=== PATIENT | male | born 1950 | race Caucasian/White ===

== ENCOUNTER 2023-06-21 08:02 | Emergency (ER) | payer MEDICARE, OTHER ==
[~2023-06-21] VITALS: Ht 167.6 cm; Wt 129.9 kg
[2023-06-21] MEDS ORDERED: LIPITOR40 MG PO (08:52)
[2023-06-21] MEDS ORDERED: COREG25 MG PO (08:53)
[2023-06-21 08:55] LABS: BASOPHILS 0.8 % (0-2); EOSINOPHILS 2.3 % (0-6); HEMATOCRIT 39.7 % (35.0-50.0); HEMOGLOBIN 13.8 g/dL (12.0-18.0); LYMPHOCYTES 20.5 % (24-44); MCH 30.8 (27-36); MCHC 34.7 g/dl (30-36); MONOCYTES 9.5 % (0-12); NEUTROPHILS 66.9 % (39-80); PLATELET COUNT 186 K/uL (140-440); RBC 4.47 M/ul (4.3-5.7); RDW 13.9 (10.5-15.0)
[2023-06-21] MEDS ORDERED: COZAAR100 MG PO (08:55)
[2023-06-21] MEDS ORDERED: CLOPIDOGREL75 MG PO (08:55)
[2023-06-21] MEDS ORDERED: CARDURA1 MG PO (08:55)
[2023-06-21] MEDS ORDERED: NIFEDIPINE ER90 M1 PO (08:56)
[2023-06-21] MEDS ORDERED: NAPROXEN250 MG PO (08:56)
[2023-06-21 09:15] LABS: ALBUMIN 3.6 g/dL (3.4-5.0); ALBUMIN/GLOBULIN RATIO 1.03 (1.1-2.4); BILIRUBIN, TOTAL 0.7 ng/dL (0.2-1.0); BUN/CREATININE RATIO 9.9 (6.0-28.6); CREATININE, SERUM 1.11 mg/dL (0.70-1.30); PROTEIN, TOTAL 7.1 g/dL (6.4-8.2)
[2023-06-21 11:32] LABS: INFLUENZA B NAA NEGATIVE (NEGATIVE); RESPIRATORY SYNCYTIAL VIR NAA NEGATIVE (NEGATIVE)
[2023-06-21 14:32] VITALS: BP 158/82
== END 2023-06-21 14:32 | disposition home or self-care (01) ==
LOC: ED 08:02
PROVIDERS: Emergency Medicine
DX: I63.9 Cerebral infarction, unspecified (principal); Z79.899 Other long term (current) drug therapy; Z20.822 Contact with and (suspected) exposure to COVID-19
CPT/HCPCS: 36415; 70450; 70551; 71045; 80053; 85025; 87502; 97161; 99284-25; A9270; C9803; U0002

== ENCOUNTER 2025-04-01 08:48 | Emergency (ER) | payer OTHER, MEDICARE ==
[~2025-04-01] VITALS: Ht 167.6 cm; Wt 136.1 kg
[~2025-04-01 08:48] MED LIST: CARDURA1 MG PO; CLOPIDOGREL75 MG PO; COREG25 MG PO; COZAAR100 MG PO; LIPITOR40 MG PO; NAPROXEN250 MG PO; NIFEDIPINE ER90 M1 PO
[2025-04-01] MEDS ORDERED: ELIQUIS5 MG PO (08:57)
[2025-04-01] MEDS ORDERED: DIPHTH,PERTUSS(ACELL),TET VAC 0.5 ML SYRINGE IM ONE (10:00)
[2025-04-01] MEDS ORDERED: CEPHALEXIN500 M1 PO (10:41)
[2025-04-01] MEDS ORDERED: CEPHALEXIN MONOHYDRATE 500 MG CAP PO ONE (10:45)
[2025-04-01 11:04] VITALS: BP 140/77
== END 2025-04-01 11:05 | disposition home or self-care (01) ==
LOC: ED 08:48
DX: S61.411A Laceration without foreign body of right hand, initial encounter (principal); S00.81XA Abrasion of other part of head, initial encounter; S00.212A Abrasion of left eyelid and periocular area, initial encounter; I10 Essential (primary) hypertension; I48.91 Unspecified atrial fibrillation; W01.0XXA Fall on same level from slipping, tripping and stumbling without subsequent striking against object, initial encounter; Z79.899 Other long term (current) drug therapy
CPT/HCPCS: 12002; 70450; 72125; 90471; 90715; 99283-25; A9270